=== PATIENT | male | born 1945 | race Caucasian/White ===

== ENCOUNTER 2016-06-02 10:11 | Outpatient (CLI) | payer OTHER ==
[~2016-06-02] VITALS: Ht 182.9 cm; Wt 97.5 kg
[~2016-06-02 10:11] MED LIST: ALPR0.5T PO; ESOM20SU PO; TERA10CA3 PO
[2016-06-02] MEDS ORDERED: BUPIVACAINE 0.25% 30 ML (SENSORCAINE) VIAL ONE (10:29)
[2016-06-02] MEDS ORDERED: TRIAMCINOLONE ACET (KENALOG-40) 40 MG/ML 1 ML VIAL ONE (10:29)
[2016-06-02 11:03] VITALS: BP 149/93
[2016-06-02 11:51] VITALS: BP 147/115
--- NOTE | 2016-06-02 13:23 | Pain Medicine-Procedure ---
Procedure Pre-Op/Post-Op Diagnosis Diagnosis: disc disorder with radiculopathy, lumbar Indications for Operation Low back pain Attending Surgeon Patricia Procedure Date of Service: Jun 02, 2016 Procedure: Lumbar Epidural Steroid Injection at the L5-S1 level under Fluoroscopic Guidance Procedure: Patient was identified in the holding area. After risks, benefits, and alternatives were discussed with the patient, informed consent was obtained. Patient was brought to the fluoroscopy suite and placed prone on the procedure room table. A time out was performed. Vital signs were monitored throughout the procedure. The patients low back was prepped and draped in the usual sterile fashion. The patients skin was anesthetized using 2% Lidocaine. A Tuohy needle was inserted and advanced to the L5-S1 epidural space under fluoroscopic guidance using the loss of resistance technique and intermittent projection of fluoroscopy. There was no paresthesia with needle placement. The needle position was confirmed in both the AP and lateral view. After negative aspiration 2ml of contrast was injected under live fluoroscopy which showed good spread of the contrast in the epidural space at the appropriate level, there was no intravascular or subarachnoid spread. Again, after negative aspiration for heme or CSF, 2 ml of 0.25% Bupivicaine, 2ml of preservative free normal saline, and 80mg of Kenalog was injected. The needle was removed and a sterile bandage was placed and the patient was transferred to the recovery area in stable condition. After a brief period of observation, patient was discharged to home with no new neurological deficits and no apparent complications. Complications None TAJ OSPINA MD Jun 02, 2016 1:23 pm
== END 2016-06-02 11:52 | disposition home or self-care (01) ==
LOC: CARD 10:11
PROVIDERS: ATTEND Pain Medicine Pain Medicine
DX: M51.16 Intervertebral disc disorders with radiculopathy, lumbar region (principal)
CPT/HCPCS: 62323

== ENCOUNTER → 2016-08-21 | Outpatient (CLI) | payer OTHER ==
--- NOTE | 2016-08-21 09:58 | Diagnostic Imaging Report ---
EXAMINATION: Right lower extremity duplex venous ultrasound. TECHNIQUE: DVT protocol. Multiple sonographic images with color Doppler and waveform interrogation were performed of the right lower extremity veins with compression and augmentation maneuvers. INDICATION: Right leg swelling. FINDINGS: The right lower extremity veins from the groin to below the knee veins were examined with normal color-flow, compressibility and normal waveform demonstrated. The great saphenous vein is patent. IMPRESSION: No evidence of DVT in the right lower extremity. Dictated by: Dictated on workstation # [id number]
== END ==
LOC: RAD 09:20
PROVIDERS: ATTEND Orthopaedic Surgery Orthopaedic Surgery of the Spine
DX: M79.661 Pain in right lower leg (principal); R22.41 Localized swelling, mass and lump, right lower limb

== ENCOUNTER → 2017-01-10 | Outpatient (CLI) | payer OTHER ==
[2017-01-10 09:02] LABS: BASOPHILS % (AUTO) 1 % (0-10); EOSINOPHILS # (AUTO) 0.1 10^3/uL (0.0-0.3); EOSINOPHILS % (AUTO) 3 % (0-10); LYMPHOCYTES # (AUTO) 1.5 X 10^3 (1.0-4.0); LYMPHOCYTES % (AUTO) 31 % (12-44); MEAN CORPUSCULAR HEMOGLOBIN 33 PG (25-34); MEAN CORPUSCULAR HGB CONC 34 G/DL (32-36); MEAN CORPUSCULAR VOLUME 96 FL (80-99); MEAN PLATELET VOLUME 9.9 FL (7.4-10.4); MONOCYTES # (AUTO) 0.6 X 10^3 (0.0-1.0); MONOCYTES % (AUTO) 13 % (0-12); NEUTROPHILS # (AUTO) 2.6 X 10^3 (1.8-7.8); NEUTROPHILS % (AUTO) 53 % (42-75); PLATELET COUNT 202 10^3/uL (130-400); RED BLOOD COUNT 5.55 10^6/uL (4.35-5.85); RED CELL DISTRIBUTION WIDTH 13.2 % (10.0-14.5); WHITE BLOOD COUNT 4.9 10^3/uL (4.3-11.0)
[2017-01-10 09:24] LABS: ALANINE AMINOTRANSFERASE 29 U/L (0-55); ALBUMIN 3.7 GM/DL (3.2-4.5); ANION GAP 6 MMOL/L (5-14); ASPARTATE AMINO TRANSFERASE 25 U/L (5-34); BILIRUBIN,TOTAL 0.7 MG/DL (0.1-1.0); BLOOD UREA NITROGEN 20 MG/DL (7-18); BUN/CREATININE RATIO 18; CALCIUM 8.9 MG/DL (8.5-10.1); CARBON DIOXIDE 23 MMOL/L (21-32); CHLORIDE 111 MMOL/L (98-107); CHOLESTEROL 220 MG/DL (< 200); CREATININE SERUM 1.12 MG/DL (0.60-1.30); DIRECT LDL 164 MG/DL (1-129); GFR ESTIMATED > 60; GLUCOSE 108 MG/DL (70-105); POTASSIUM 3.9 MMOL/L (3.6-5.0); SODIUM 140 MMOL/L (135-145); TOTAL PROTEIN 6.8 GM/DL (6.4-8.2); TRIGLYCERIDES 130 MG/DL (<150); VLDL CHOLESTEROL 26 MG/DL (5-40)
[2017-01-10 10:41] LABS: BAND NEUTROPHILS 0 %; EOSINOPHILS % (MANUAL) 3 %; LYMPHOCYTES % (MANUAL) 30 %; NEUTROPHILS % (MANUAL) 52 %
[2017-01-10 10:43] LABS: REACTIVE LYMPHOCYTES 1 %
== END ==
LOC: LAB 08:39
PROVIDERS: ATTEND Nurse Practitioner Family
DX: Z00.00 Encounter for general adult medical examination without abnormal findings (principal)
CPT/HCPCS: 36415; 80053; 80061; 85007; 85027

== ENCOUNTER 2017-04-12 12:52 | Outpatient (RCR) | payer OTHER ==
[2017-03-07 10:10] LABS: ABSOLUTE RETIC # 38 10e9/L (24-90); BASOPHILS % (AUTO) 1 % (0-10); EOSINOPHILS # (AUTO) 0.1 10^3/uL (0.0-0.3); EOSINOPHILS % (AUTO) 2 % (0-10); HEMATOCRIT 51 % (40-54); HEMOGLOBIN 17.5 G/DL (13.3-17.7); LYMPHOCYTES # (AUTO) 1.2 X 10^3 (1.0-4.0); LYMPHOCYTES % (AUTO) 24 % (12-44); MEAN CORPUSCULAR HEMOGLOBIN 32 PG (25-34); MEAN CORPUSCULAR HGB CONC 34 G/DL (32-36); MEAN CORPUSCULAR VOLUME 94 FL (80-99); MEAN PLATELET VOLUME 10.5 FL (7.4-10.4); MONOCYTES # (AUTO) 0.6 X 10^3 (0.0-1.0); MONOCYTES % (AUTO) 12 % (0-12); NEUTROPHILS % (AUTO) 61 % (42-75); PLATELET COUNT 186 10^3/uL (130-400); RED CELL DISTRIBUTION WIDTH 12.6 % (10.0-14.5); RETICULOCYTE % 0.71 % (0.50-2.40); WHITE BLOOD COUNT 4.9 10^3/uL (4.3-11.0)
[2017-03-07 10:27] LABS: ALBUMIN 3.9 GM/DL (3.2-4.5); BILIRUBIN,TOTAL 0.8 MG/DL (0.1-1.0); CALCIUM 9.1 MG/DL (8.5-10.1); CREATININE SERUM 1.26 MG/DL (0.60-1.30); POTASSIUM 3.7 MMOL/L (3.6-5.0); TOTAL PROTEIN 7.5 GM/DL (6.4-8.2)
[2017-04-12 13:17] LABS: BASOPHILS # (AUTO) 0.1 10^3/uL (0.0-0.1); BASOPHILS % (AUTO) 1 % (0-10); EOSINOPHILS # (AUTO) 0.1 10^3/uL (0.0-0.3); EOSINOPHILS % (AUTO) 1 % (0-10); HEMATOCRIT 47 % (40-54); HEMOGLOBIN 16.3 G/DL (13.3-17.7); LYMPHOCYTES # (AUTO) 1.4 X 10^3 (1.0-4.0); LYMPHOCYTES % (AUTO) 23 % (12-44); MEAN CORPUSCULAR HEMOGLOBIN 34 PG (25-34); MEAN CORPUSCULAR HGB CONC 35 G/DL (32-36); MEAN CORPUSCULAR VOLUME 97 FL (80-99); MEAN PLATELET VOLUME 9.8 FL (7.4-10.4); MONOCYTES # (AUTO) 0.5 X 10^3 (0.0-1.0); MONOCYTES % (AUTO) 8 % (0-12); NEUTROPHILS % (AUTO) 66 % (42-75); PLATELET COUNT 185 10^3/uL (130-400); RED BLOOD COUNT 4.86 10^6/uL (4.35-5.85); RED CELL DISTRIBUTION WIDTH 13.5 % (10.0-14.5); WHITE BLOOD COUNT 6.1 10^3/uL (4.3-11.0)
[2017-04-12 13:38] LABS: ALANINE AMINOTRANSFERASE 23 U/L (0-55); ALBUMIN 3.8 GM/DL (3.2-4.5); ALKALINE PHOSPHATASE 90 U/L (40-136); BILIRUBIN,TOTAL 0.9 MG/DL (0.1-1.0); BUN/CREATININE RATIO 18; CALCIUM 8.8 MG/DL (8.5-10.1); CARBON DIOXIDE 23 MMOL/L (21-32); CHLORIDE 109 MMOL/L (98-107); CREATININE SERUM 1.02 MG/DL (0.60-1.30); GFR ESTIMATED > 60; GLUCOSE 153 MG/DL (70-105); POTASSIUM 3.8 MMOL/L (3.6-5.0); SODIUM 140 MMOL/L (135-145)
== END 2017-06-05 | disposition home or self-care (01) ==
LOC: ONC 12:52
PROVIDERS: ATTEND Internal Medicine Hematology & Oncology
DX: D58.2 Other hemoglobinopathies (principal); M54.16 Radiculopathy, lumbar region
CPT/HCPCS: 36415; 80053; 81270; 82668; 82728; 83540; 83615; 85025; 85045; 99213; 99214

== ENCOUNTER 2018-04-16 09:56 | Outpatient (RCR) | payer OTHER ==
[2018-04-16 10:17] LABS: BASOPHILS % (AUTO) 1 % (0-10); EOSINOPHILS # (AUTO) 0.1 10^3/uL (0.0-0.3); EOSINOPHILS % (AUTO) 2 % (0-10); HEMATOCRIT 50 % (40-54); HEMOGLOBIN 17.5 G/DL (13.3-17.7); LYMPHOCYTES # (AUTO) 1.4 X 10^3 (1.0-4.0); LYMPHOCYTES % (AUTO) 24 % (12-44); MEAN CORPUSCULAR HEMOGLOBIN 34 PG (25-34); MEAN CORPUSCULAR HGB CONC 35 G/DL (32-36); MEAN CORPUSCULAR VOLUME 97 FL (80-99); MEAN PLATELET VOLUME 9.5 FL (7.4-10.4); MONOCYTES # (AUTO) 0.6 X 10^3 (0.0-1.0); MONOCYTES % (AUTO) 10 % (0-12); NEUTROPHILS # (AUTO) 3.8 X 10^3 (1.8-7.8); NEUTROPHILS % (AUTO) 64 % (42-75); PLATELET COUNT 205 10^3/uL (130-400); RED CELL DISTRIBUTION WIDTH 13.3 % (10.0-14.5); WHITE BLOOD COUNT 5.9 10^3/uL (4.3-11.0)
[2018-04-16 10:36] LABS: ALANINE AMINOTRANSFERASE 28 U/L (0-55); ALKALINE PHOSPHATASE 95 U/L (40-136); BILIRUBIN,TOTAL 0.9 MG/DL (0.1-1.0); BUN/CREATININE RATIO 16; CALCIUM 9.2 MG/DL (8.5-10.1); CARBON DIOXIDE 25 MMOL/L (21-32); CHLORIDE 108 MMOL/L (98-107); CREATININE SERUM 1.12 MG/DL (0.60-1.30); GFR ESTIMATED > 60; GLUCOSE 111 MG/DL (70-105); POTASSIUM 4.4 MMOL/L (3.6-5.0); SODIUM 140 MMOL/L (135-145); TOTAL PROTEIN 7.3 GM/DL (6.4-8.2)
== END 2018-07-15 | disposition home or self-care (01) ==
LOC: ONC 09:56
PROVIDERS: ATTEND Internal Medicine Hematology & Oncology
DX: D58.2 Other hemoglobinopathies (principal); M54.16 Radiculopathy, lumbar region; Z79.899 Other long term (current) drug therapy
CPT/HCPCS: 36415; 80053; 85025; 99213

== ENCOUNTER 2019-01-10 09:36 | Outpatient (RCR) | payer OTHER ==
[2018-10-15 10:36] LABS: BASOPHILS % (AUTO) 1 % (0-10); EOSINOPHILS # (AUTO) 0.1 10^3/uL (0.0-0.3); EOSINOPHILS % (AUTO) 2 % (0-10); HEMATOCRIT 48 % (40-54); HEMOGLOBIN 17.2 G/DL (13.3-17.7); LYMPHOCYTES # (AUTO) 1.4 X 10^3 (1.0-4.0); LYMPHOCYTES % (AUTO) 28 % (12-44); MEAN CORPUSCULAR HEMOGLOBIN 34 PG (25-34); MEAN CORPUSCULAR HGB CONC 36 G/DL (32-36); MEAN CORPUSCULAR VOLUME 94 FL (80-99); MEAN PLATELET VOLUME 10.2 FL (7.4-10.4); MONOCYTES # (AUTO) 0.6 X 10^3 (0.0-1.0); MONOCYTES % (AUTO) 12 % (0-12); NEUTROPHILS # (AUTO) 2.9 X 10^3 (1.8-7.8); NEUTROPHILS % (AUTO) 58 % (42-75); PLATELET COUNT 201 10^3/uL (130-400); RED CELL DISTRIBUTION WIDTH 12.7 % (10.0-14.5); WHITE BLOOD COUNT 4.9 10^3/uL (4.3-11.0)
[2018-10-15 10:52] LABS: ALANINE AMINOTRANSFERASE 20 U/L (0-55); ALKALINE PHOSPHATASE 86 U/L (40-136); BILIRUBIN,TOTAL 0.6 MG/DL (0.1-1.0); BUN/CREATININE RATIO 14; CARBON DIOXIDE 20 MMOL/L (21-32); CHLORIDE 110 MMOL/L (98-107); CREATININE SERUM 1.09 MG/DL (0.60-1.30); GFR ESTIMATED > 60; GLUCOSE 129 MG/DL (70-105); POTASSIUM 4.1 MMOL/L (3.6-5.0); SODIUM 141 MMOL/L (135-145); TOTAL PROTEIN 6.9 GM/DL (6.4-8.2)
[2019-01-10 09:51] LABS: BASOPHILS % (AUTO) 0 % (0-10); EOSINOPHILS # (AUTO) 0.2 10^3/uL (0.0-0.3); EOSINOPHILS % (AUTO) 2 % (0-10); HEMATOCRIT 50 % (40-54); HEMOGLOBIN 17.2 G/DL (13.3-17.7); LYMPHOCYTES # (AUTO) 1.1 X 10^3 (1.0-4.0); LYMPHOCYTES % (AUTO) 15 % (12-44); MEAN CORPUSCULAR HEMOGLOBIN 33 PG (25-34); MEAN CORPUSCULAR HGB CONC 34 G/DL (32-36); MEAN CORPUSCULAR VOLUME 97 FL (80-99); MEAN PLATELET VOLUME 9.8 FL (7.4-10.4); MONOCYTES # (AUTO) 0.9 X 10^3 (0.0-1.0); MONOCYTES % (AUTO) 13 % (0-12); NEUTROPHILS # (AUTO) 4.9 X 10^3 (1.8-7.8); NEUTROPHILS % (AUTO) 70 % (42-75); PLATELET COUNT 166 10^3/uL (130-400); RED CELL DISTRIBUTION WIDTH 13.7 % (10.0-14.5)
== END 2019-01-13 | disposition home or self-care (01) ==
LOC: ONC 09:36
PROVIDERS: ATTEND Internal Medicine Hematology & Oncology
DX: D58.2 Other hemoglobinopathies (principal); M54.16 Radiculopathy, lumbar region; Z79.899 Other long term (current) drug therapy
CPT/HCPCS: 36415; 80053; 82728; 85025; 99213

== ENCOUNTER → 2019-02-06 | Outpatient (CLI) | payer OTHER ==
--- NOTE | 2019-02-06 10:28 | Diagnostic Imaging Report ---
INDICATION: Left shoulder pain. Time of exam 8:55 a.m. Multiple views of the left shoulder were obtained. FINDINGS: Glenohumeral and acromioclavicular alignment are normal. Acromiohumeral space is normal. No fracture or dislocation is seen. There are mild degenerative changes at the AC joint. IMPRESSION: Degenerative changes. No acute bony abnormality is detected. Dictated by: Dictated on workstation # [id number]
== END ==
LOC: RAD FS 08:51
PROVIDERS: ATTEND Nurse Practitioner
DX: M19.012 Primary osteoarthritis, left shoulder (principal); M75.102 Unspecified rotator cuff tear or rupture of left shoulder, not specified as traumatic
CPT/HCPCS: 73030

== ENCOUNTER → 2019-02-24 | Outpatient (CLI) | payer OTHER ==
--- NOTE | 2019-02-24 16:39 | Diagnostic Imaging Report ---
EXAMINATION: Magnetic resonance imaging of the left shoulder without contrast. DATE: February 24, 2019. COMPARISON: Left shoulder radiographs February 06, 2019. HISTORY: 74-year-old male, left shoulder pain and decreased range of motion. TECHNIQUE: Magnetic Resonance Imaging sequences were performed of the shoulder without contrast. FINDINGS: ROTATOR CUFF, LIGAMENTS, TENDONS, AND MUSCLES: There is all an 11 mm wide full-thickness tear involving the supraspinatus tendon with the tear measuring 9 mm in medial to lateral dimension. The infraspinatus and teres minor tendons are intact. There is mild subscapularis tendinopathy. There is normal rotator cuff muscle bulk and signal. LONG HEAD OF BICEPS: The biceps labral attachment and long head of the biceps tendon is intact. The long head of the biceps tendon is normally positioned within the bicipital groove. GLENOHUMERAL JOINT: The humeral head is well positioned relative to the glenoid. The labrum is grossly intact. There is no identified paralabral cyst. The articular cartilage is grossly intact. There is no joint effusion. ACROMIOCLAVICULAR JOINT: The acromioclavicular joint is normally aligned. The coracoclavicular and coracoacromial ligaments are intact. There are moderate acromioclavicular degenerative changes with a bulbous clavicle projecting approximately 4 mm below the joint margin. BONE: There is no os acromiale. There is no acute fracture, bone contusion, or evidence of osteonecrosis. BURSAE AND SOFT TISSUES: The bursae and soft tissue surrounding the shoulder are unremarkable. IMPRESSION: 1. 11 mm wide full-thickness tear of the supraspinatus tendon measuring 9 mm in medial to lateral dimension. Subscapularis tendinopathy. No fatty muscle atrophy. 2. Moderate acromioclavicular degenerative changes with bulbous distal clavicle projecting 4 mm below the joint margin. 3. Grossly intact labrum and unremarkable additional glenohumeral joint assessment. 4. No acute fracture, bone contusion, or evidence of osteonecrosis. Dictated by: Dictated on workstation # [id number]
== END ==
LOC: RAD 15:14
PROVIDERS: ATTEND Nurse Practitioner
DX: M75.102 Unspecified rotator cuff tear or rupture of left shoulder, not specified as traumatic (principal); M19.012 Primary osteoarthritis, left shoulder
CPT/HCPCS: 73221

== ENCOUNTER 2019-04-08 11:03 | Outpatient (RCR) | payer OTHER ==
[2019-04-08 11:21] LABS: BASOPHILS % (AUTO) 1 % (0-10); EOSINOPHILS # (AUTO) 0.1 10^3/uL (0.0-0.3); EOSINOPHILS % (AUTO) 1 % (0-10); HEMATOCRIT 51 % (40-54); HEMOGLOBIN 17.3 G/DL (13.3-17.7); LYMPHOCYTES # (AUTO) 1.3 X 10^3 (1.0-4.0); LYMPHOCYTES % (AUTO) 22 % (12-44); MEAN CORPUSCULAR HEMOGLOBIN 34 PG (25-34); MEAN CORPUSCULAR HGB CONC 34 G/DL (32-36); MEAN CORPUSCULAR VOLUME 98 FL (80-99); MEAN PLATELET VOLUME 9.5 FL (7.4-10.4); MONOCYTES # (AUTO) 0.8 X 10^3 (0.0-1.0); MONOCYTES % (AUTO) 14 % (0-12); NEUTROPHILS # (AUTO) 3.8 X 10^3 (1.8-7.8); NEUTROPHILS % (AUTO) 63 % (42-75); PLATELET COUNT 201 10^3/uL (130-400); RED CELL DISTRIBUTION WIDTH 13.6 % (10.0-14.5)
[2019-04-08 11:42] LABS: BILIRUBIN,TOTAL 0.7 MG/DL (0.1-1.0); CREATININE SERUM 1.21 MG/DL (0.60-1.30); POTASSIUM 4.2 MMOL/L (3.6-5.0); TOTAL PROTEIN 7.2 GM/DL (6.4-8.2)
== END 2019-07-07 | disposition home or self-care (01) ==
LOC: ONC 11:03
PROVIDERS: ATTEND Internal Medicine Hematology & Oncology
DX: D58.2 Other hemoglobinopathies (principal); M54.16 Radiculopathy, lumbar region; Z79.899 Other long term (current) drug therapy; Z86.69 Personal history of other diseases of the nervous system and sense organs
CPT/HCPCS: 80053; 82728; 85025; 99195

== ENCOUNTER → 2019-10-07 | Outpatient (CLI) | payer OTHER ==
[~2019-10-07] MED LIST changes: +LIDOCAINE 1% 20 ML (XYLOCAINE) VIAL CANCER CTR ONE
[2019-10-07 10:42] LABS: BASOPHILS % (AUTO) 0 % (0-10); EOSINOPHILS # (AUTO) 0.1 10^3/uL (0.0-0.3); EOSINOPHILS % (AUTO) 2 % (0-10); HEMATOCRIT 52 % (40-54); HEMOGLOBIN 18.1 G/DL (13.3-17.7); LYMPHOCYTES # (AUTO) 1.7 X 10^3 (1.0-4.0); LYMPHOCYTES % (AUTO) 23 % (12-44); MEAN CORPUSCULAR HEMOGLOBIN 34 PG (25-34); MEAN CORPUSCULAR HGB CONC 35 G/DL (32-36); MEAN CORPUSCULAR VOLUME 97 FL (80-99); MEAN PLATELET VOLUME 9.8 FL (7.4-10.4); MONOCYTES % (AUTO) 14 % (0-12); NEUTROPHILS # (AUTO) 4.4 X 10^3 (1.8-7.8); NEUTROPHILS % (AUTO) 61 % (42-75); PLATELET COUNT 198 10^3/uL (130-400); RED CELL DISTRIBUTION WIDTH 13.3 % (10.0-14.5); WHITE BLOOD COUNT 7.2 10^3/uL (4.3-11.0)
[2019-10-07 10:53] LABS: ABSOLUTE RETIC # 72 10e9/L (24-90); RETICULOCYTE % 1.34 % (0.50-2.40)
[2019-10-07 11:13] LABS: BILIRUBIN,TOTAL 0.7 MG/DL (0.1-1.0); CREATININE SERUM 1.26 MG/DL (0.60-1.30); POTASSIUM 4.1 MMOL/L (3.6-5.0); TOTAL PROTEIN 7.4 GM/DL (6.4-8.2)
[2019-10-07 11:30] LABS: EOSINOPHILS % (MANUAL) 2 %; LYMPHOCYTES % (MANUAL) 21 %; MONOCYTES % (MANUAL) 10 %; NEUTROPHILS % (MANUAL) 67 %; RBC MORPH NORMAL
== END ==
LOC: EDSTATUS 07-08 11:14 → ONC 10:29
PROVIDERS: ATTEND Internal Medicine Hematology & Oncology
DX: D58.2 Other hemoglobinopathies (principal); M54.16 Radiculopathy, lumbar region; Z79.899 Other long term (current) drug therapy; Z86.69 Personal history of other diseases of the nervous system and sense organs
CPT/HCPCS: 36410; 38220; 38221; 80053; 82728; 85007; 85025; 85045; 99195

== ENCOUNTER 2019-10-22 09:57 | Outpatient (RCR) | payer OTHER ==
[~2019-10-22 09:57] MED LIST changes: -LIDOCAINE 1% 20 ML (XYLOCAINE) VIAL CANCER CTR ONE
== END 2020-01-20 | disposition home or self-care (01) ==
LOC: ONC 09:57
PROVIDERS: ATTEND Internal Medicine Hematology & Oncology
DX: D75.1 Secondary polycythemia (principal); G47.33 Obstructive sleep apnea (adult) (pediatric)
CPT/HCPCS: 99213

== ENCOUNTER → 2020-10-14 | Outpatient (CLI) | payer OTHER ==
[2020-10-14 10:02] LABS: BASOPHILS # (AUTO) 0.1 10^3/uL (0.0-0.1); BASOPHILS % (AUTO) 1 % (0-10); EOSINOPHILS # (AUTO) 0.1 10^3/uL (0.0-0.3); EOSINOPHILS % (AUTO) 2 % (0-10); HEMATOCRIT 49 % (40-54); HEMOGLOBIN 16.9 g/dL (13.3-17.7); LYMPHOCYTES # (AUTO) 1.3 10^3/uL (1.0-4.0); LYMPHOCYTES % (AUTO) 27 % (12-44); MEAN CORPUSCULAR HEMOGLOBIN 34 pg (25-34); MEAN CORPUSCULAR HGB CONC 34 g/dL (32-36); MEAN CORPUSCULAR VOLUME 98 fL (80-99); MONOCYTES # (AUTO) 0.7 10^3/uL (0.0-1.0); MONOCYTES % (AUTO) 15 % (0-12); NEUTROPHILS # (AUTO) 2.7 10^3/uL (1.8-7.8); NEUTROPHILS % (AUTO) 55 % (42-75); PLATELET COUNT 196 10^3/uL (130-400); WHITE BLOOD COUNT 4.8 10^3/uL (4.3-11.0)
[2020-10-14 10:25] LABS: ALBUMIN 3.6 GM/DL (3.2-4.5); BILIRUBIN,TOTAL 0.6 MG/DL (0.1-1.0); CALCIUM 8.4 MG/DL (8.5-10.1); CREATININE SERUM 1.18 MG/DL (0.60-1.30); POTASSIUM 3.7 MMOL/L (3.6-5.0)
== END ==
LOC: EDSTATUS 01-21 14:22 → ONC 09:50
PROVIDERS: ATTEND Internal Medicine Hematology & Oncology
DX: D75.0 Familial erythrocytosis (principal); G47.33 Obstructive sleep apnea (adult) (pediatric); Z98.890 Other specified postprocedural states
CPT/HCPCS: 80053; 85025; G0463; 99213

== ENCOUNTER 2021-06-01 05:29 | Outpatient (RCR) | payer OTHER ==
[~2021-06-01] VITALS: Ht 185.4 cm; Wt 102.2 kg
[~2021-06-01 05:29] MED LIST changes: +ALPR0.5T7 PO; +LANS30CA PO; +SUCR1TAB PO; +TERA2CAP4 PO
== END 2021-06-01 09:40 | disposition home or self-care (01) ==
LOC: PREOP 05:29
PROVIDERS: ATTEND Internal Medicine
DX: K21.9 Gastro-esophageal reflux disease without esophagitis (principal); Z20.822 Contact with and (suspected) exposure to COVID-19
CPT/HCPCS: 87635

== ENCOUNTER 2021-06-03 09:29 | Day surgery (SDC) | payer OTHER ==
--- NOTE | 2021-05-30 20:08 | HISTORY AND PHYSICAL ---
DATE OF SERVICE: PANENDOSCOPY HISTORY AND PHYSICAL HISTORY OF PRESENT ILLNESS: The patient is a 76-year-old white male referred by Dr. Larson for consideration for panendoscopy. He was due for surveillance colonoscopy due to past history of adenomatous colonic polyps with last colonoscopy in 2013. He reports since around Thanksgiving time epigastric pain, it is worse when he has a cocktail or 2 in the evening. He had been taking 2-3 ibuprofen just at bedtime for some arthritis aches and pains but stopped it at that time and it is not resolved. He has a history of reflux and I performed one other EGD on him in 2010 at which time, he had no evidence for Quijano's or erosive esophagitis. He reports that he has not had melena or bright red blood per rectum. Carafate was recently added to Nexium that he has been taking on a regular basis for longstanding reflux symptoms, which has gotten a little bit worse over the past year. He denies dysphagia, just reporting epigastric pain, especially aggravated by any type of alcoholic beverage. PAST MEDICAL HISTORY: Pertinent for prostatism and gastroesophageal reflux. He also has some insomnia that he takes an alprazolam for at bedtime. ALLERGIES: HE REPORTS NO KNOWN PAST DRUG ALLERGIES. PAST SURGICAL HISTORY: Noncontributory. No abdominal surgery history. 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 No past smoking history. Does have history of regular social alcohol intake. REVIEW OF SYSTEMS: CONSTITUTIONAL: Denies night sweats, chills, fever, change in weight. PULMONARY: Denies cough, wheezing or shortness of breath. GASTROINTESTINAL: As noted in the HPI. CARDIOVASCULAR: Denies chest pain, orthopnea, PND or pedal edema. PHYSICAL EXAMINATION: GENERAL: Reveals a white male, appeared to be in no acute distress. HEENT: Pertinent for bilateral cheilitis change as well as erythema in the corners of his mouth. There are changes of solar elastosis. CHEST: Clear to auscultation. CARDIOVASCULAR: Reveals a regular rate and rhythm without significant murmur, S3 or S4. ABDOMEN: Soft, supple. He does have some epigastric discomfort to palpation without rebound or guarding. He has evidence for diastasis recti, but no bruits are noted and no mass or organomegaly noted. No other areas of tenderness were noted to palpation of the abdomen other than the epigastrium. EXTREMITIES: Reveal no cyanosis, clubbing or edema. ASSESSMENT AND PLAN: The patient is undergoing surveillance colonoscopy due to past history of colon polyps and diagnostic EGD due to reflux symptoms with epigastric pain refractory to proton pump inhibitor therapy as well as recent addition of Carafate. Job ID: [id number] DocumentID: [id number] Dictated Date: 05/30/2021 11:44:49 Slasher Runner Date: 05/30/2021 12:09:24 Dictated By: SABINO ABEBE MD
[~2021-06-03] VITALS: Ht 185 cm; Wt 102.0 kg
[2021-06-03] MEDS ORDERED: LACTATED RINGERS 1,000 ML IV STA (09:40)
[2021-06-03] MEDS ORDERED: LIDOCAINE JELLY 2% 6 ML SYRINGE MM PRN (09:45)
[2021-06-03] MEDS ORDERED: HURRICAINE EXT TUBE (BENZOCAINE) XX PRN (09:45)
[2021-06-03 09:50] VITALS: BP 135/82
--- NOTE | 2021-06-03 09:56 | Pre-Op Note & Conscious Sedat ---
Pre-Operative Progress Note H&P Reviewed The H&P was reviewed, patient examined and no changes noted. Date H&P Reviewed: Jun 03, 2021 Time H&P Reviewed: 09:56 Conscious Sedation Pre-Proced ASA Score 2 For ASA 3 and 4: Consider anesthesia and medical clearance. Also, for patients with a history of failed moderate sedation consider anesthesia. Airway Lungs Heart ASA score ASA 1: a normal healthy patient ASA 2: a patient with a mild systemic disease (mid diabetes, controlled hypertension, obesity ASA 3: a patient with a severe systemic disease that limits activity (angina, COPD, prior Myocardial infarction) ASA 4: a patient with an incapacitating disease that is a constant threat to life (CHF, renal failure) ASA 5: a moribund patient not expected to survive 24 hrs. (ruptured aneurysm) ASA 6: a declared brain- patient whose organs are being harvested. For emergent operations, add the letter E after the classification Mallampati Classification Grade 2 Sedation Plan Analgesia, Amnesia, Plan communicated to team members, Discussed options with patient/fam, Discussed risks with patient/fam The patient is an appropriate candidate to undergo the planned procedure, sedation, and anesthesia. The patient immediately re-assessed prior to indication. SABINO ABEBE MD Jun 03, 2021 09:56
[2021-06-03] MEDS ORDERED: MIDAZOLAM 2 MG/2 ML (VERSED) VIAL ONE (11:12)
[2021-06-03] MEDS ORDERED: PROPOFOL INJECTION 50 ML IV ONE (11:12)
[2021-06-03 11:50] VITALS: BP 117/73
[2021-06-03 11:55] VITALS: BP 115/75
--- NOTE | 2021-06-03 11:56 | Anesthesia-General Post-Op ---
MAC Patient Condition Mental Status/LOC: Same as Preop Cardiovascular: Satisfactory Nausea/Vomiting: Absent Respiratory: Satisfactory Pain: Controlled Complications: Absent Post Op Complications Complications None Follow Up Care/Instructions Patient Instructions None needed. Anesthesiology Discharge Order Discharge Order Patient is doing well, no complaints, stable vital signs, no apparent adverse anesthesia problems. No complications reported per nursing. AGNIESZKA BUNN CRNA Jun 03, 2021 11:56
[2021-06-03 12:45] VITALS: BP 113/82
--- NOTE | 2021-06-03 19:01 | OPERATIVE REPORT ---
DATE OF SERVICE: PANENDOSCOPY SUMMARY INDICATION FOR THE PROCEDURE: Screening colon with EGD being performed due to reflux sounding symptoms with epigastric pain. DESCRIPTION OF PROCEDURE: The patient was placed in the left lateral decubitus position. The endoscope was inserted in the oral cavity and under direct visualization, esophagus was intubated. The endoscope was passed down the esophagus through stomach and second portion of the duodenum. Careful inspection was made as the endoscope was withdrawn. The patient tolerated the procedure well. FINDINGS: The posterior pharynx, epiglottis, true and false vocal folds and arytenoid aperture were unremarkable to visual inspection. The proximal and mid esophagus were unremarkable. There is a small sliding hiatal hernia with some mild erythema noted at the Z-line only with no evidence for erosive esophagitis or Quijano's changes on gross inspection. No evidence for stricture formation was noted. The cardia of the stomach was unremarkable. The fundus revealed one small fundal appearing polyp that was removed via hot forceps. The antrum of the stomach was unremarkable as was the pylorus, pyloric channel, duodenal bulb and second portion of the duodenum. ASSESSMENT: Mild erythema was noted at the Z-line without evidence for erosive esophagitis or Quijano's change. One small fundal appearing polyp was removed via hot forceps from the distal fundus with an otherwise unremarkable study. recommended Gaviscon as needed for breakthrough reflux symptoms continuing proton pump inhibitor therapy and holding Carafate as the patient has not felt it to be of much benefit. We then proceeded with colonoscopy. Prior to undergoing colonoscopy, digital rectal evaluation was performed. Anal sphincter tone was normal. Perianal reflexes intact. The prostate was unremarkable on digital inspection as was the anal canal and distal rectal vault. The colonoscope was then inserted into the rectum and under direct visualization advanced to cecum. The cecum was identified by identification of ileocecal valve and cecal strap. Photographic documentation was obtained. Quality of prep was good. FINDINGS: There was no evidence for internal or external hemorrhoids and the rectum was unremarkable. Mild to moderate diverticular disease noted in the sigmoid and descending colon was present without evidence for diverticulitis. No other abnormalities noted in these areas. The splenic flexure, transverse colon, hepatic flexure, ascending colon, and cecum were normal. ASSESSMENT: Mild to moderate diverticular disease confined to the sigmoid colon was present with otherwise normal colonoscopy including digital evaluation of the prostate. Considering the patient's age, I would not advocate future screening colonoscopy. Thank you for the referral of this pleasant gentleman. Job ID: [id number] DocumentID: [id number] Dictated Date: 06/03/2021 12:40:49 Food Aide Date: 06/03/2021 17:12:14 Dictated By: SABINO ABEBE MD MTDD
== END 2021-06-03 12:45 | disposition home or self-care (01) ==
LOC: ENDO 09:29
PROVIDERS: ATTEND Internal Medicine
DX: Z12.11 Encounter for screening for malignant neoplasm of colon (principal); K21.9 Gastro-esophageal reflux disease without esophagitis; K44.9 Diaphragmatic hernia without obstruction or gangrene; K31.89 Other diseases of stomach and duodenum; K31.7 Polyp of stomach and duodenum; K57.30 Diverticulosis of large intestine without perforation or abscess without bleeding; F41.9 Anxiety disorder, unspecified; Z79.899 Other long term (current) drug therapy

== ENCOUNTER 2022-08-30 15:38 | Emergency (ER) | payer OTHER ==
[~2022-08-30] VITALS: Ht 182 cm; Wt 100.0 kg
--- NOTE | 2022-08-30 16:27 | ED Lower Extremity ---
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 Source: patient Exam Limitations: no limitations History of Present Illness Date Seen by Provider: Aug 30, 2022 Time Seen by Provider: 16:15 Initial Comments This 77-year-old gentleman presents to the emergency room with injury to the distal lateral left foot after a spool of wire was dropped on it. He has pain with weightbearing and walking. There is no break to the skin but there are obvious contusions. Allergies and Home Medications Allergies Coded Allergies: No Known Drug Allergies (Unverified , 12/09/10) Patient Home Medication List Home Medication List Reviewed: Yes Alprazolam (Alprazolam) 0.5 Mg Tablet, 0.5 MG PO HS, (Reported) Entered as Reported by: HENRY ALVES on 05/31/211427 Lansoprazole (Lansoprazole) 30 Mg Capsule.dr, 30 MG PO DAILY, (Reported) Entered as Reported by: HENRY ALVES on 05/31/211427 Sucralfate (Sucralfate) 1 Gm Tablet, 1 GM PO ACHS, (Reported) Entered as Reported by: HENRY ALVES on 05/31/211427 Terazosin HCl (Terazosin HCl) 2 Mg Capsule, 2 MG PO DAILY, (Reported) Entered as Reported by: HENRY ALVES on 05/31/211427 Review of Systems Constitutional: no symptoms reported EENTM: no symptoms reported Respiratory: no symptoms reported Cardiovascular: no symptoms reported Gastrointestinal: no symptoms reported Genitourinary: no symptoms reported Musculoskeletal: no symptoms reported Skin: no symptoms reported Psychiatric/Neurological: No Symptoms Reported Past Ifhcozc-Tzjnqv-Enilhy Hx Patient Social History Tobacco Use?: No Use of E-Cig and/or Vaping dev: No Substance use?: No Alcohol Use?: Yes Alcohol type: Beer, Hard Liquor, Wine Alcohol Frequency: Daily Pt feels they are or have been: No Immunizations Up To Date First/Initial COVID19 Vaccinat: JULY 2020 Second COVID19 Vaccination Narayan: AUGUST 2020 Third COVID19 Vaccination Date: MARCH 2021 COVID19 Vaccine Cassandra Developer: MODERNA Seasonal Allergies Seasonal Allergies: No Past Medical History Surgery/Hospitalization HX: BACK SURGERY X 2 SHOULDER SURGERY KIDNEY STONES Surgeries: Yes Orthopedic (back and shoulder) Respiratory: No Cardiac: No Neurological: No Genitourinary: Yes Kidney Stones Gastrointestinal: No Chronic Back Pain Endocrine: No HEENT: No Cancer: No Psychosocial: No Integumentary: No Blood Disorders: No Physical Exam Vital Signs Vital Signs - First Documented 08/30/22 15:40 Temp 36.4 Pulse 74 Resp 16 B/P (MAP) 148/84 (105) Pulse Ox 96 O2 Delivery Room Air Capillary Refill : Less Than 3 Seconds Height, Weight, BMI Height: 6'0.00" Weight: 215lbs. 0.0oz. 97.549997wn; 30.00 BMI Method: General Appearance: WD/WN, no apparent distress HEENT: normal ENT inspection Respiratory: no respiratory distress Ankles: left ankle non-tender, left ankle normal inspection, left ankle normal range of motion, left ankle no evidence of injury Feet: left foot other (Ecchymosis, swelling, and tenderness over the dorsal aspect of the fourth and fifth MTP joints. Distal exam unremarkable with capillary refill and sensation intact. Pain with range of motion of the toes. Remainder of exam normal.) Neurologic/Psychiatric: no motor/sensory deficits, alert, normal mood/affect, oriented x 3 Skin: warm/dry, ecchymosis Progress/Results/Core Measures Results/Orders My Orders Orders - DOLORES PARR MD Foot 3 View Left (08/30/22 16:26) Vital Signs/I&O 08/30/22 08/30/22 15:40 17:27 Temp 36.4 36.4 Pulse 74 74 Resp 16 16 B/P (MAP) 148/84 (105) 148/84 Pulse Ox 96 96 O2 Delivery Room Air Room Air Blood Pressure Mean: 105 Progress Progress Note : Progress Note X-rays were obtained. Patient has nondisplaced fractures of the fourth and fifth proximal phalanx of the left foot. Patient was provided with a boot for protection as he is very active. He reports having hydrocodone at home. He therefore does not need a prescription for pain management. I advised against NSAIDs as it may delay bone healing. I did recommend that he exercise extreme caution with using Xanax, alcohol, and hydrocodone in combination. See discharge instructions for further discussion. X-rays were reviewed by me and fractures were noted by my interpretation. Radiologist report confirmed the fractures. Diagnostic Imaging Diagonstic Imaging: Xray Plain Films/CT/US/NM/MRI: other (left foot) Comments [facility]: [facility] REC#: [id number] PT STATUS: DEP ER : 1945 PHYSICIAN: DOLORES PARR MD ADMIT DATE: 08/30/22/ER FS Signed Date of Exam:08/30/22 FOOT 3 VIEW LEFT INDICATION: Left foot injury with pain. FINDINGS: AP, oblique and lateral views of the left foot reveal nondisplaced fractures involving distal shaft of fifth proximal phalanx and the proximal shaft of fourth proximal phalanx. There is also questionable fracture at the base of fifth proximal phalanx which may involve the articular surface. Otherwise, no acute fracture or malalignment is identified. There is marginal spurring at the second metatarsophalangeal joint. There is no radiopaque foreign body. IMPRESSION: Nondisplaced fractures involving fourth and fifth proximal phalanges with possible extension to the base of fifth proximal phalanx, although there is no evidence of articular surface offset. Dictated by: Dictated on workstation # [id number] Dict: 08/30/22 1640 Trans: 08/31/22817 AS6 [id number] Interpreted by: MARY NINO MD Electronically signed by: MARY NINO MD 08/31/22817 Departure Impression Primary Impression: Toe fracture, left Qualified Codes: S92.515A - Nondisplaced fracture of proximal phalanx of left lesser toe(s), initial encounter for closed fracture Disposition: 01 HOME, SELF-CARE Condition: Stable Departure-Patient Inst. Decision time for Depature: 17:11 Referrals: JAMES SANDERS MD (PCP/Family) Primary Care Physician Patient Instructions: Toe Fracture (DC) Add. Discharge Instructions: Rest, elevation, and 20-minute intervals of icing should help reduce pain and swelling. For mild pain you may take Tylenol up to 1000 mg every 6 hours as needed. For more severe pain you may use the hydrocodone previously prescribed. Use hydrocodone with caution as it may cause drowsiness. Do not drive, operate machinery, or make important decisions while on hydrocodone. Use hydrocodone with caution if you are also using sleep aids and/or alcohol as this may cause excessive sedation. It is best not to take them in proximity to each other. Hydrocodone may also cause constipation, so you may wish to use a stool softener such as Colace while on hydrocodone. Avoid use of NSAID medications such as ibuprofen or naproxen for the first 4 weeks as it may delay bone healing. You should use a postop shoe or boot whenever active or bearing weight for a minimum of 4 weeks. If you have any residual pain at all at 4 weeks, you should extend use to at least 6 weeks. Return to care if you have worsening symptoms despite following these instructions. Follow-up with your primary care provider if you are not improving progressively over the next 4 weeks as expected. All discharge instructions reviewed with patient and/or family. Voiced understanding. Copy Copies To 1: JAMES SANDERS MD, JOSHUA T MD Aug 30, 2022 16:27
--- NOTE | 2022-08-30 16:45 | Diagnostic Imaging Report ---
INDICATION: Left foot injury with pain. FINDINGS: AP, oblique and lateral views of the left foot reveal nondisplaced fractures involving distal shaft of fifth proximal phalanx and the proximal shaft of fourth proximal phalanx. There is also questionable fracture at the base of fifth proximal phalanx which may involve the articular surface. Otherwise, no acute fracture or malalignment is identified. There is marginal spurring at the second metatarsophalangeal joint. There is no radiopaque foreign body. IMPRESSION: Nondisplaced fractures involving fourth and fifth proximal phalanges with possible extension to the base of fifth proximal phalanx, although there is no evidence of articular surface offset. Dictated by: Dictated on workstation # [id number]
[2022-08-30 17:27] VITALS: BP 148/84
== END 2022-08-30 17:27 | disposition home or self-care (01) ==
LOC: EDUNIT# 15:38 → ER FS 15:40
DX: S92.515A Nondisplaced fracture of proximal phalanx of left lesser toe(s), initial encounter for closed fracture (principal); W20.8XXA Other cause of strike by thrown, projected or falling object, initial encounter
CPT/HCPCS: 73630